=== PATIENT | female | born 1985 | race Caucasian/White ===

== ENCOUNTER → 2022-08-06 14:47 | Outpatient (BNVA) | payer SELFPAY | PROVIDERS: Family Provider Nurse Practitioner; PCP Nurse Practitioner; Visit Provider Nurse Practitioner Family | DX: Z20.822 Contact with and (suspected) exposure to COVID-19 (principal); J01.40 Acute pansinusitis, unspecified | CPT/HCPCS: 87426 ==

== ENCOUNTER 2023-08-23 11:03 | Emergency (ER) | payer SELFPAY ==
[2023-08-23 11:31] VITALS: BP 117/78; PULSE 92; RESP 16; TEMP 36.6; O2SAT 98; BMI 28.3
--- NOTE | 2023-08-23 11:34 | XRR_ITS ---
PROCEDURE INFORMATION: Exam: XR Right Ankle Exam date and time: 08/23/2023 11:36 AM Age: 38 years old Clinical indication: Ankle and foot; Patient HX: Right foot/ankle pain and swelling post twisting injury TECHNIQUE: Imaging protocol: Radiologic exam of the right ankle. Views: 3 or more views. COMPARISON: No relevant prior studies available. FINDINGS: Bones/joints: A 0.8 x 0.2 cm osseous fragment is noted about the lateral aspect of the foot, likely representing a displaced avulsion fracture of the base of the 5th metatarsal. Ankle mortise is maintained. Soft tissues: Soft tissues are swollen about the lateral ankle. XR/XR ankle RT min 3V* [id number] IMPRESSION: Avulsion fracture of the base of the 5th metatarsal.
== END 2023-08-23 12:42 | disposition left against medical advice (07) ==
PROVIDERS: Emergency Provider Family Medicine; PCP Nurse Practitioner
DX: Z53.21 Procedure and treatment not carried out due to patient leaving prior to being seen by health care provider (principal)
CPT/HCPCS: 73610

== ENCOUNTER 2023-08-24 13:18 | Emergency (ER) | payer SELFPAY ==
[2023-08-24 13:59] VITALS: BP 121/79; PULSE 82; RESP 17; TEMP 36.4; O2SAT 99; BMI 28.3
--- NOTE | 2023-08-24 14:36 | W.ED.EXTPRO ---
HPI - Extremity Problem General: Chief complaint: Extremity Injury, Lower Stated complaint: right foot injury Time Seen by Provider: 08/24/23 14:05 History of Present Illness: 38-year-old female comes in today for injury to the right foot. Patient had an x-ray done of her right ankle yesterday and was called today to be notified that there was a fracture. Patient was referred to the ER for further evaluation and treatment. Review of the record noted that there was a avulsion fracture of the fifth metatarsal on the ankle x-ray. Patient reports that she turned the ankle yesterday while walking down some steps. Review of Systems General: Reports: 10 or more systems reviewed and unremarkable except in HPI and below Musc: Reports: joint pain (Right ankle) and joint swelling (Right ankle) PFSH ED PFSH: Social History Smoking and tobacco status: current every day smoker Second hand smoke exposure: No Smoking risk assessment/counseling performed?: No Alcohol intake: never Desire information about alcohol rehabilitation?: No Counseling given: No Substance/Drug Use: never Desire information about substance/drug rehabilitation?: No Counseling given: No Physical Exam Const: COMMON NORMALS: alert HENMT: COMMON NORMALS: normocephalic HEAD & SCALP: normocephalic Neck/C-Spine: COMMON NORMALS: full ROM Resp: COMMON NORMALS: normal respiratory effort Cardio: COMMON NORMALS: regular rate and regular rhythm RATE: regular rate RHYTHM: regular rhythm Back/Pelvis: COMMON NORMALS: thoracic and lumbar spine normal to inspection Extremity: RIGHT LOWER EXTREMITY: Yes foot & digits (Lateral swelling and bruising right ankle) Neuro: SENSORIUM/ORIENTATION: Yes alert Skin: COMMON NORMALS: turgor normal GENERAL SKIN EXAM: turgor normal Course Vital Signs: Vital signs: Vital Signs Temperature 97.5 F L 08/24/23 13:59 Pulse Rate 82 08/24/23 13:59 Respiratory Rate 17 08/24/23 13:59 Blood Pressure 121/79 08/24/23 13:59 Pulse Oximetry 99 08/24/23 13:59 Oxygen Delivery Me thod Room Air 08/24/23 13:59 MDM - Extremity (Nontraumatic) Medical Decision Making 38-year-old female comes in today with injury to the right ankle. On exam patient has ecchymosis and swelling to the right ankle with tenderness to light palpation. Positive pedal pulses are noted. Review of the record noted a avulsion fracture of the fifth metatarsal. Differential diagnosis includes dislocation, fracture, sprain. Reviewed x-ray with patient with recommendations for splint and follow-up with employee placement specialist. Patient was given the name for the foot and ankle surgeon Dr. Treviño. Patient should contact Dr. Treviño's office Friday for follow-up appointment. Patient was placed in crutches to stay nonweightbearing until follow-up appointment. No radiology studies performed this visit Discharge Plan Discharge Patient Disposition: Home Clinical Impression: Ankle fracture Qualifiers: Encounter type: initial encounter Fracture type: closed Laterality: right Qualified Code(s): S82.891A - Other fracture of right lower leg, initial encounter for closed fracture Condition: Stable Prescriptions: New hydrocodone-acetaminophen 5-325 mg tablet 1 tab PO Q6H PRN (Reason: pain (scale score 7-10)) Qty: 12 0RF No Action amoxicillin-pot clavulanate 875-125 mg tablet 1 tab PO BID Qty: 20 0RF prednisone 20 mg tablet 20 mg PO BID Qty: 6 0RF Discharge Orders: Discharge ED (Routine); Ordered 08/24/23 Ordered By: Imer Apodaca Referrals: Azul Cordova FNP-C [Primary Care Provider] - Neri Treviño DPM [Physician] - Discharge Diet: Usual diet Discharge Activity: Increase activity as tolerated Patient Instructions: Ankle Fracture (ED) Activity Restrictions/Additional Instructions: Keep splint clean and dry. Nonweightbearing. Follow-up with orthopedics/foot and ankle surgeon office for further evaluation and treatment. Elevate ankle is much as possible for swelling. Return to ED for new concerns. Stand Alone Forms: Work/School Release Coding Level of Care Code ED Medical Sales Associate for [facility]
[2023-08-24] MEDS: HYDROcodone-acetaminophen 7.5-325 mg Tablet 1 TAB PO (14:44)
== END 2023-08-24 14:51 | disposition home or self-care (01) ==
PROVIDERS: Emergency Provider Nurse Practitioner Family; PCP Nurse Practitioner
DX: S92.351A Displaced fracture of fifth metatarsal bone, right foot, initial encounter for closed fracture (principal); F17.210 Nicotine dependence, cigarettes, uncomplicated; X50.1XXA Overexertion from prolonged static or awkward postures, initial encounter
CPT/HCPCS: 99283; E0114

== ENCOUNTER 2023-08-28 06:00 | Outpatient (CLI) | payer SELFPAY | END 2023-09-23 23:59 | disposition home or self-care (01) | LOC: SPT 11-13 13:50 | PROVIDERS: PCP Nurse Practitioner; Visit Provider Podiatrist Foot & Ankle Surgery | DX: Z46.89 Encounter for fitting and adjustment of other specified devices (principal); S92.009D Unspecified fracture of unspecified calcaneus, subsequent encounter for fracture with routine healing; X58.XXXD Exposure to other specified factors, subsequent encounter | CPT/HCPCS: L4361 ==

== ENCOUNTER → 2024-04-12 10:54 | Outpatient (BNVA) | payer MEDICAID, SELFPAY | PROVIDERS: PCP Nurse Practitioner; Visit Provider Nurse Practitioner Family | DX: R05.9 Cough, unspecified (principal) | CPT/HCPCS: 87426 ==

== ENCOUNTER → 2024-08-16 17:19 | Outpatient (BNVA) | payer MEDICAID, SELFPAY | PROVIDERS: PCP Nurse Practitioner; Visit Provider Nurse Practitioner Family | DX: Z11.3 Encounter for screening for infections with a predominantly sexual mode of transmission (principal); Z12.4 Encounter for screening for malignant neoplasm of cervix | CPT/HCPCS: 87491; 87591; 88175 ==

== ENCOUNTER → 2025-03-29 10:58 | Outpatient (BNVA) | payer OTHER, MEDICAID, SELFPAY | PROVIDERS: PCP Nurse Practitioner; Visit Provider Clinical Nurse Specialist Adult Health | DX: N39.0 Urinary tract infection, site not specified (principal) | CPT/HCPCS: 81000; 87086 ==